=== PATIENT | female | born 1960 | race Caucasian/White ===

== ENCOUNTER 2018-07-04 16:21 | Outpatient (CLI) | payer OTHER ==
--- NOTE | 2018-07-04 17:44 | RAD ---
TWO VIEWS CHEST: 07/04/18 PROVIDED CLINICAL HISTORY: Right upper quadrant pain. FINDINGS: Cardiac and mediastinal silhouette is within normal limits. There is no focal consolidation evident. There is blunting of the left posterior costophrenic angle that may reflect pleural fluid. IMPRESSION: Possible small left pleural effusion. POS: [facility]
--- NOTE | 2018-07-04 17:46 | RAD ---
THORACIC SPINE RADIOGRAPHS THREE VIEWS: 07/04/18 PROVIDED CLINICAL HISTORY: Back pain. FINDINGS: Thoracic alignment appears normal. Vertebral body heights appear preserved. Mild thoracic disc degene rative changes are seen. Pedicles appear intact. No lytic or blastic lesions are radiographically brie arent. IMPRESSION: No radiographic evidence for an acute osseous abnormality. POS: [facility]
== END 2018-07-04 16:22 | disposition home or self-care (01) ==
LOC: SCSRAD 16:21
PROVIDERS: ATTEND Family Medicine
DX: R10.11 Right upper quadrant pain (principal)
CPT/HCPCS: 71046; 72070

== ENCOUNTER 2018-07-23 11:53 | Outpatient (CLI) | payer OTHER ==
--- NOTE | 2018-07-23 21:09 | NM ---
HIDA SCAN: 07/23/2018 PROVIDED CLINICAL HISTORY: Right upper quadrant pain. RADIOPHARMACEUTICAL: Technetium 99m labeled mebrofenin 5.4 millicuries was given IV. FINDINGS: There is normal hepatic extraction of radiotracer by the liver with excretion into the biliary system and the bowel within a normal amount of time. Subsequent to the p.o. administration of 8 oz of Ensu re, there is qualitatively poor excretion of radiotracer from the gallbladder, with a calculated gall bladder ejection fraction of 19%. IMPRESSION: 1. No evidence for common or cystic duct obstruction. 2. Diminished gallbladder ejection fraction. Correlate with concerns for a biliary dyskinetic syndr ome. POS: [facility]
== END 2018-07-23 11:54 | disposition home or self-care (01) ==
LOC: NM 11:53
PROVIDERS: ATTEND Family Medicine
DX: R10.11 Right upper quadrant pain (principal)
CPT/HCPCS: 78227; A9537